=== PATIENT | female | born 1985 | race Two or more races ===

== ENCOUNTER 2021-04-24 11:24 | Emergency (ER) | payer MEDICAID ==
[~2021-04-24] VITALS: Ht 160 cm; Wt 54.4 kg
--- NOTE | 2021-04-24 11:30 | NUR ---
PT SELF PRESENT TO ER BED 09 C/O L ELBOW PAIN W/ NOTED LACERATION S/P SMASHING IT TO A WINE GLASS. STATES SHE PULLED OUT PIECES OF GLASS AND NOW IS HAVING PAIN. STABLE VITALS. NAD NOTED. AWAITING MD OLIVER.
[2021-04-24] MEDS: LIDOCAINE 1%-EPI 1:100,000 50 ML VIAL IJ ONE (11:56)
[2021-04-24] MEDS ORDERED: LEVO25TA7 PO (13:38)
--- NOTE | 2021-04-24 14:07 | NUR ---
CALLED [facility] AND NOTIFIED OF PT STATUS. AWAITING A CALL BACK.
--- NOTE | 2021-04-24 14:33 | NUR ---
CALLED [facility] TO FOLLOW UP. DR. DOTY HAS BEEN PAGED AND WILL CALL US BACK.
--- NOTE | 2021-04-24 14:41 | NUR ---
DR. GARBER IS NOW SPEAKING TO DR. DOTY
[2021-04-24 14:43] LABS: BASOPHILS # (AUTO) 0.1 K/uL (0.0-0.2); HEMATOCRIT 41 % (33-45); HEMOGLOBIN 13.9 g/dL (11.5-14.8); LYMPHOCYTES # (AUTO) 0.9 K/uL (0.8-4.8); LYMPHOCYTES % (AUTO) 13.4 % (20.0-44.0); MEAN CORPUSCULAR HGB CONC 34 g/dl (31.0-36.0); MEAN CORPUSCULAR VOLUME 93 fL (82-100); MONOCYTES # (AUTO) 0.4 K/uL (0.1-1.30); MONOCYTES % (AUTO) 6.1 % (2.0-12.0); NEUTROPHILS # (AUTO) 5.2 K/uL (1.8-8.9); NEUTROPHILS % (AUTO) 77.5 % (43.0-81.0); PLATELET COUNT (AUTO) 297 K/uL (150-450); RED BLOOD CELL COUNT(AUTO) 4.45 MIL/uL (4.0-5.2); WHITE BLOOD COUNT (AUTO) 6.7 K/uL (4.3-11.0)
[2021-04-24 14:54] LABS: CREATININE 0.9 mg/dL (0.6-1.3); POTASSIUM 3.8 mmol/L (3.5-5.1)
--- NOTE | 2021-04-24 18:59 | NUR ---
CALLED [facility] AND WAS NOTIFIED THAT THERE IS NO TRANSFER INFO.
--- NOTE | 2021-04-24 20:52 | NUR ---
FOLLOWED UP WITH [facility]. STATES ALL FACILITIES ARE SATURATED. SINCE PT NEEDS PLASTICS MD, CASE WILL BE ESCALATED TO [facility]YSIC[facility] [employer] [facility] TO SORT OUT TRANSFER.
[2021-04-24] MEDS ORDERED: CEPHALEXIN MONOHYDRATE 500 MG CAPSULE PO ONE (22:15)
[2021-04-24] MEDS: CEPHALEXIN MONOHYDRATE 500 MG CAPSULE PO ONE (22:18)
[2021-04-24] MEDS: CEFAZOLIN 1 GM in IV D5W 50 ML IV ONE (22:19)
[2021-04-24] MEDS ORDERED: HYDR-4209 PO (22:25)
[2021-04-24] MEDS ORDERED: CEPH500C2 PO (22:25)
--- NOTE | 2021-04-24 22:47 | NUR ---
Patient discharged to home in stable condition. Written and verbal after care instructions given. Patient verbalizes understanding of instruction.
[2021-04-24 22:50] VITALS: BP 122/70
[2021-04-24] MEDS ORDERED: IBUP-1955 PO (22:50)
== END 2021-04-24 23:02 | disposition home or self-care (01) ==
LOC: ER 11:30
DX: S51.022A Laceration with foreign body of left elbow, initial encounter (principal); W25.XXXA Contact with sharp glass, initial encounter; W45.8XXA Other foreign body or object entering through skin, initial encounter; Y92.89 Other specified places as the place of occurrence of the external cause; Y99.8 Other external cause status; Z20.822 Contact with and (suspected) exposure to COVID-19
CPT/HCPCS: 24200; 36415; 73080 ×2; 80048; 85025; 87081; 87426; 99285; A6403; C9803; J3490; J7060; J0690